=== PATIENT | male | born 1935 | race Caucasian/White ===

== ENCOUNTER 2017-10-08 02:13 | Emergency (ER) | payer OTHER ==
[2017-10-08] MEDS ORDERED: ONDANSETRON 4 MG/2 ML VIAL IVP ONE (02:34)
[2017-10-08] MEDS ORDERED: NS 1,000 ML IV ONE (02:34)
[2017-10-08] MEDS ORDERED: HYDROmorphONE/DILAUDID 2 MG/ML INJ IVP ONE (02:34)
[2017-10-08 02:40] LABS: PLATELET COUNT 253 10^3/uL (150-400)
[2017-10-08] MEDS ORDERED: IOPAMIDOL (ISOVUE-300) 100 ML BTL ONE (02:40)
--- NOTE | 2017-10-08 02:44 | EDPHY ---
H & P Stated Complaint: abd pain Time Seen by Provider: 10/08/17 02:33 HPI/ROS: HPI The patient presents with abdominal pain which has been present since about 9: 00 p.m. Tonight after eating a piece of cake. The pain is sharp, epigastric, intermittent, associated with belching and nausea. There is no radiation of the pain. He has had 2 small bowel movements yesterday. He was recently admitted to a hospital in [place] on July 08 for an SBO which resolved with conservative measures. He has not had any abdominal operations. At home he tried taking Pepto-Bismol and tramadol without any improvement in the pain so he came in to the emergency department.. REVIEW OF SYSTEMS Constitutional: No fever, no chills. Eyes: No discharge. ENT: No sore throat. Cardiovascular: No chest pain, no palpitations. Respiratory: No cough, no shortness of breath. Gastrointestinal: No abdominal pain, no vomiting. Genitourinary: No hematuria. Musculoskeletal: No back pain. Skin: No rashes. Neurological: No headache. PMHx: History of SBO as above, West Nile virus with encephalopathy, myasthenia gravis Soc Hx: Visiting his 2 sons in [place], lives in [place] usually PHYSICAL General Appearance: Alert, uncomfortable appearing Eyes: Pupils equal and round no pallor or injection ENT, Mouth: Mucous membranes moist Respiratory: There are no retractions, lungs are clear to auscultation Cardiovascular: Regular rate and rhythm Gastrointestinal: Abdomen is soft and tender in the epigastrium with mild diffuse tenderness throughout all quadrants, there is voluntary guarding Neurological: A&O, moves all extremities Skin: Warm and dry, no rashes Musculoskeletal: Neck is supple non tender Extremities: symmetrical, full range of motion Psychiatric: Patient is oriented X 3, there is no agitation Source: Patient Exam Limitations: No limitations - Personal History Current Tetanus Diphtheria and Acellular Pertussis (TDAP): Yes - Medical/Surgical History Hx Asthma: No Hx Chronic Respiratory Disease: No Hx Diabetes: No Hx Cardiac Disease: No Hx Renal Disease: No Hx Cirrhosis: No Hx Alcoholism: No Hx HIV/AIDS: No Hx Splenectomy or Spleen Trauma: No Other PMH: SBO 07/06. myasthenia gravis. encephalopathy of 5-8. TIA july 2016 - Social History Smoking Status: Never smoked Constitutional: Initial Vital Signs Temperature (C) 36.9 C 10/08/17 02:15 Heart Rate 79 10/08/17 02:15 Respiratory Rate 20 10/08/17 02:15 Blood Pressure 171/83 H 10/08/17 02:15 O2 Sat (%) 96 10/08/17 02:15 O2 Delivery Mode Room Air O2 (L/minute) 2 Allergies/Adverse Reactions: Penicillins Allergy (Verified 10/08/17 02:15) Home Medications: Medication Instructions Recorded Acetaminophen/Caffeine 10/08/17 Cellcept 10/08/17 Clonazepam 10/08/17 Multivitamin (*) 10/08/17 Prednisone 10/08/17 Quinine Sulfate 10/08/17 Vitamin D3 10/08/17 traMADol 10/08/17 Medical Decision Making - Diagnostics Imaging Results: CT abdomen pelvis shows bowel obstruction with distension of the abdomen and small bowel with fecal matter in the colon, discussed with Dr. Yu of Radiology. Differential Diagnosis: 82-year-old man, history of myasthenia gravis, West Nile virus encephalopathy, recent SBO with unclear cause, presents with epigastric abdominal pain which began at 9:00 p.m. Tonight. On exam, he is uncomfortable appearing, blood pressure is elevated, he is quite tender in the epigastrium. Differential diagnosis includes perforated gastric ulcer, gastritis, GERD, pancreatitis, cholecystitis. In the emergency department, the patient received 1 L normal saline and a dose of Dilaudid with complete resolution in his pain. Labs were checked and were relatively unremarkable. Patient underwent CT scan of his abdomen which did show bowel obstruction, however without any transition point and was stool in his colon. I discussed the case with Dr. Trejo. He recommends that we perform enema here and reassessed the patient. The patient attempted enema without much success. He felt well for several hours and was monitored here during that time. His abdominal exam remained benign. He had no vomiting. He has requested to go home at this point. I feel this is reasonable. I will send him home with magnesium citrate in the hopes that this will produce a bowel movement. He is able to tolerate fluids and will be discharged with his . I did explain to them that his TSH was slightly elevated, however they have done a full thyroid panel within the last few months which was unremarkable. I explained that they may want to follow this up with a return home. - Data Points Laboratory Results: Laboratory Results 10/08/17 02:31 10/08/17 02:31 10/08/17 10/08/17 10/08/17 03:25 02:31 02:31 WBC RBC Hgb Hct MCV MCH MCHC RDW Plt Count MPV Neut % (Auto) Lymph % (Auto) [place] % (Auto) Eos % (Auto) Baso % (Auto) Nucleat RBC Rel Count Absolute Neuts (auto) Absolute Lymphs (auto) Absolute Monos (auto) Absolute Eos (auto) Absolute Basos (auto) Absolute Nucleated RBC Immature Gran % Immature Gran # VBG Lactic Acid Sodium 143 mEq/L mEq/L (135-145) Potassium 3.9 mEq/L mEq/L (3.3-5.0) Chloride 102 mEq/L mEq/L (97-110) Carbon Dioxide 29 mEq/l mEq/l (22-31) Anion Gap 12 mEq/L mEq/L (8-16) BUN 29 mg/dL H mg/dL (7-23) Creatinine 0.9 mg/dL mg/dL (0.7-1.3) Estimated GFR > 60 Glucose 102 mg/dL H mg/dL (70-100) Calcium 10.2 mg/dL mg/dL (8.5-10.4) Total Bilirubin 0.6 mg/dL mg/dL (0.1-1.4) Conjugated Bilirubin 0.4 mg/dL mg/dL (0.0-0.5) Unconjugated Bilirubin 0.2 mg/dL mg/dL (0.0-1.1) AST 25 IU/L IU/L (17-59) ALT 29 IU/L IU/L (21-72) Alkaline Phosphatase 72 IU/L IU/L (38-126) Total Protein 6.8 g/dL g/dL (6.3-8.2) Albumin 4.1 g/dL g/dL (3.5-5.0) Lipase 188 IU/L IU/L (23-300) TSH 6.580 uIU/mL H uIU/mL (0.465-4.680) Urine Color YELLOW Urine Appearance MODERATELY TURBID Urine pH 8.0 H (5.0-7.5) Ur Specific [place] > 1.035 H (1.002-1.030) Urine Protein NEGATIVE (NEGATIVE) Urine Ketones NEGATIVE (NEGATIVE) Urine Blood NEGATIVE (NEGATIVE) Urine Nitrate NEGATIVE (NEGATIVE) Urine Bilirubin NEGATIVE (NEGATIVE) Urine Urobilinogen NEGATIVE EU EU (0.2-1.0) Ur Leukocyte Esterase NEGATIVE (NEGATIVE) Urine Glucose NEGATIVE (NEGATIVE) 10/08/17 10/08/17 02:31 02:31 WBC 10.26 10^3/uL H 10^3/uL (3.80-9.50) RBC 4.26 10^6/uL L 10^6/uL (4.40-6.38) Hgb 13.0 g/dL L g/dL (13.7-17.5) Hct 41.7 % % (40.0-51.0) MCV 97.9 fL fL (81.5-99.8) MCH 30.5 pg pg (27.9-34.1) MCHC 31.2 g/dL L g/dL (32.4-36.7) RDW 13.8 % % (11.5-15.2) Plt Count 253 10^3/uL 10^3/uL (150-400) MPV 9.0 fL fL (8.7-11.7) Neut % (Auto) 76.6 % H % (39.3-74.2) Lymph % (Auto) 11.9 % L % (15.0-45.0) [place] % (Auto) 9.5 % % (4.5-13.0) Eos % (Auto) 0.9 % % (0.6-7.6) Baso % (Auto) 0.4 % % (0.3-1.7) Nucleat RBC Rel Count 0.0 % % (0.0-0.2) Absolute Neuts (auto) 7.87 10^3/uL H 10^3/uL (1.70-6.50) Absolute Lymphs (auto) 1.22 10^3/uL 10^3/uL (1.00-3.00) Absolute Monos (auto) 0.97 10^3/uL H 10^3/uL (0.30-0.80) Absolute Eos (auto) 0.09 10^3/uL 10^3/uL (0.03-0.40) Absolute Basos (auto) 0.04 10^3/uL 10^3/uL (0.02-0.10) Absolute Nucleated RBC 0.00 10^3/uL 10^3/uL (0-0.01) Immature Gran % 0.7 % % (0.0-1.1) Immature Gran # 0.07 10^3/uL 10^3/uL (0.00-0.10) VBG Lactic Acid 1.6 mmol/L mmol/L (0.7-2.1) Sodium Potassium Chloride Carbon Dioxide Anion Gap BUN Creatinine Estimated GFR Glucose Calcium Total Bilirubin Conjugated Bilirubin Unconjugated Bilirubin AST ALT Alkaline Phosphatase Total Protein Albumin Lipase TSH Urine Color Urine Appearance Urine pH Ur Specific [place] Urine Protein Urine Ketones Urine Blood Urine Nitrate Urine Bilirubin Urine Urobilinogen Ur Leukocyte Esterase Urine Glucose Medications Given: Discontinued Medications Hydromorphone HCl (Dilaudid) 0.5 mg IVP EDNOW ONE Stop: 10/08/17 02:35 Last Admin: 10/08/17 02:40 Dose: 0.5 mg Sodium Chloride (Ns) 1,000 mls @ 0 mls/hr IV EDNOW ONE; Wide Open PRN Reason: Protocol Stop: 10/08/17 02:35 Last Admin: 10/08/17 02:39 Dose: 1,000 mls Magnesium Citrate (Magnesium Citrate) 300 ml PO ONCE ONE Stop: 10/08/17 06:29 Last Admin: 10/08/17 06:25 Dose: 1 btl Ondansetron HCl (Zofran) 4 mg IVP EDNOW ONE Stop: 10/08/17 02:35 Last Admin: 10/08/17 02:39 Dose: 4 mg Departure - Departure Disposition: Home, Routine, Self-Care Clinical Impression: TSH elevation Bowel obstruction Qualifiers: Intestinal obstruction type: unspecified Intestinal obstruction extent: unspecified extent Qualified Code(s): K56.609 - Unspecified intestinal obstruction, unspecified as to partial versus complete obstruction Condition: Good Instructions: Constipation (DC) Additional Instructions: Please take the magnesium citrate at home. If your feeling better, there is no need to return to the emergency department. If you have difficulty having a bowel movement or developed abdominal pain or vomiting you should return to the emergency department. Your labs showed that your TSH was elevated and this could be causing your bowels to move more slowly. You will need follow-up testing when you return home with your doctor for a recheck. Referrals: LINDA DESAI [Other] - As per Instructions
[2017-10-08 03:21] VITALS: BP 143/72
[2017-10-08] MEDS ORDERED: MAGNESIUM CITRATE 300 ML BOTTLE ONE (06:23)
[2017-10-08] MEDS ORDERED: MAGNESIUM CITRATE 300 ML BOTTLE PO ONE (06:28)
== END 2017-10-08 06:32 | disposition home or self-care (01) ==
DX: K56.609 Unspecified intestinal obstruction, unspecified as to partial versus complete obstruction (principal); R94.6 Abnormal results of thyroid function studies; E86.9 Volume depletion, unspecified
CPT/HCPCS: 74177; 96361; 96374; 96375; 99285; J1170; J2405; Q9967

== ENCOUNTER 2017-10-08 11:02 | Observation (INO) | payer OTHER ==
--- NOTE | 2017-10-08 11:41 | EDPHY ---
HPI/HX/ROS/PE/MDM Narrative: CHIEF COMPLAINT: Abdominal pain, diagnosed with bowel obstruction HISTORY OF PRESENT ILLNESS: The patient is an 82 y/o male with a history of an appendectomy complaining of sharp, intermittent, upper abdominal pain associated with belching and nausea, onset at 21:00, 15 hours ago. On 07/08/17, he was admitted to a hospital in [place] for a SBO which resolved with conservative measures including a small bowel follow through. Two days ago he had 2 small bowel movements prior to the onset of pain. Early this morning he presented to this emergency department and was diagnosed with a bowel obstruction without any transition point and stool in the colon. Dr. Trejo, general surgeon, was consulted and he advised that the patient receive and enema. However, there was not much success with the enema. The patient eventually requested to return home after receiving fluids and Dilaudid. After returning home he tried to take magnesium citrate which caused his pain to worsen. No fever, chills, chest pain, shortness of breath, palpitations, vomiting, diarrhea, urinary complaints, headache, lightheadedness. REVIEW OF SYSTEMS: Aside from elements discussed in the HPI, a comprehensive 10-point review of systems was reviewed and is negative. PAST MEDICAL HISTORY: SBO, appendectomy, West Nile virus with encephalopathy, myasthenia gravis SOCIAL HISTORY: at bedside, visiting his 2 sons in [place], lives in [place], retired VITAL SIGNS: Reviewed by me GENERAL: Pale, elderly, resting comfortably in no respiratory distress. HEENT: Atraumatic. Eyes: No icterus, no injection. Mouth: dry mucous membranes. No erythema or lesions. Neck: supple with no adenopathy. LUNGS: Clear to auscultation bilaterally, no wheezes, rhonchi or rales. CARDIAC: Regular rate and rhythm, no rubs, murmurs or gallops. ABDOMEN: Moderate diffuse abdominal tenderness (more in the upper quadrants). Soft, nondistended, bowel sounds hyperactive. BACK: No CVA tenderness. EXTREMITIES: No trauma. No edema. Range of motion is normal throughout. NEURO: Alert and oriented, grossly nonfocal. SKIN: Warm and dry, no rash. PSYCHIATRIC: Normal mentation, no agitation. Portions of this note were transcribed by a director biomedical engineering. I personally performed a history, physical exam, medical decision making, and confirmed accuracy of information the transcribed note. ED Course: The patient is an 82 y/o male with a history of an appendectomy presenting with sharp, intermittent, upper abdominal pain associated with belching and nausea, onset at 21:00, 15 hours ago. He was seen in this emergency department last night and diagnosed with a obstuction secondary to constipation. The patient tried an enema and magnesium citrate without relief of his symptoms. On exam he has moderate diffuse abdominal tenderness (more in the upper quadrants) and hyperactive bowel sounds. Labs and abdominal x-ray ordered; 1L IV NS and 75mcg IV Fentanyl administered. I discussed the plan for admission as the patient has been unable to care for himself. The patient's is comfortable with plan of admission for further care. 1249: I reviewed patient's abdominal x-ray which reveals few scattered air fluid levels and some constipation. 1305: Consulted with Dr. Trejo, trauma surgeon, regarding this patient. Dr. Trejo believes the patient should have another enema and be given Synthroid; perhaps patient will be able to have a decent bowel movement and be discharged to home.. 100mcg PO Synthroid and 300 mL PO Magnesium Citrate administered. 1350: Reassessed patient and discussed imaging and laboratory findings. Patient is comfortable with having an enema. 1438: Patient is still in pain; additional 50mcg IV Fentanyl administered. Discussed with hospital medicine staff. Will admit for ongoing pain control, prevention of dehydration, and aggressive bowel regiment. MDM: Diff dx considered included constipation, obstipation, fecal impaction, bowel obstruction, ileus, hypokalemia, hypothyroidism. - Data Points Imaging Results: Imaging Impressions Abdomen X-Ray 10/08/17 12:12 Impression: 1. Persistent mild dilatation of small bowel loops lower abdomen to upper pelvis compatible with relatively stable partial SBO. Imaging: I viewed and interpreted images myself Laboratory Results: Laboratory Results 10/08/17 12:10 10/08/17 12:10 10/08/17 10/08/17 10/08/17 14:14 12:10 12:10 WBC 11.35 10^3/uL H 10^3/uL (3.80-9.50) RBC 3.71 10^6/uL L 10^6/uL (4.40-6.38) Hgb 11.3 g/dL L g/dL (13.7-17.5) Hct 35.6 % L % (40.0-51.0) MCV 96.0 fL fL (81.5-99.8) MCH 30.5 pg pg (27.9-34.1) MCHC 31.7 g/dL L g/dL (32.4-36.7) RDW 13.9 % % (11.5-15.2) Plt Count 232 10^3/uL 10^3/uL (150-400) MPV 9.2 fL fL (8.7-11.7) Neut % (Auto) 85.6 % H % (39.3-74.2) Lymph % (Auto) 4.1 % L % (15.0-45.0) [place] % (Auto) 9.2 % % (4.5-13.0) Eos % (Auto) 0.2 % L % (0.6-7.6) Baso % (Auto) 0.3 % % (0.3-1.7) Nucleat RBC Rel Count 0.0 % % (0.0-0.2) Absolute Neuts (auto) 9.73 10^3/uL H 10^3/uL (1.70-6.50) Absolute Lymphs (auto) 0.46 10^3/uL L 10^3/uL (1.00-3.00) Absolute Monos (auto) 1.04 10^3/uL H 10^3/uL (0.30-0.80) Absolute Eos (auto) 0.02 10^3/uL L 10^3/uL (0.03-0.40) Absolute Basos (auto) 0.03 10^3/uL 10^3/uL (0.02-0.10) Absolute Nucleated RBC 0.00 10^3/uL 10^3/uL (0-0.01) Immature Gran % 0.6 % % (0.0-1.1) Immature Gran # 0.07 10^3/uL 10^3/uL (0.00-0.10) Platelet Estimate TNP Sodium 139 mEq/L mEq/L (135-145) Potassium 4.0 mEq/L mEq/L (3.3-5.0) Chloride 101 mEq/L mEq/L (97-110) Carbon Dioxide 29 mEq/l mEq/l (22-31) Anion Gap 9 mEq/L mEq/L (8-16) BUN 23 mg/dL mg/dL (7-23) Creatinine 0.7 mg/dL mg/dL (0.7-1.3) Estimated GFR > 60 Glucose 85 mg/dL mg/dL (70-100) Calcium 9.4 mg/dL mg/dL (8.5-10.4) Total Bilirubin 0.7 mg/dL mg/dL (0.1-1.4) Conjugated Bilirubin 0.3 mg/dL mg/dL (0.0-0.5) Unconjugated Bilirubin 0.4 mg/dL mg/dL (0.0-1.1) AST 22 IU/L IU/L (17-59) ALT 27 IU/L IU/L (21-72) Alkaline Phosphatase 65 IU/L IU/L (38-126) Total Protein 5.8 g/dL L g/dL (6.3-8.2) Albumin 3.4 g/dL L g/dL (3.5-5.0) Urine Color YELLOW Urine Appearance MODERATELY TURBID Urine pH 8.0 H (5.0-7.5) Ur Specific [place] 1.023 (1.002-1.030) Urine Protein NEGATIVE (NEGATIVE) Urine Ketones NEGATIVE (NEGATIVE) Urine Blood NEGATIVE (NEGATIVE) Urine Nitrate NEGATIVE (NEGATIVE) Urine Bilirubin NEGATIVE (NEGATIVE) Urine Urobilinogen NEGATIVE EU EU (0.2-1.0) Ur Leukocyte Esterase NEGATIVE (NEGATIVE) Urine RBC 1-3 /hpf /hpf (0-3) Urine WBC 1-3 /hpf /hpf (0-3) Ur Epithelial Cells NONE SEEN /lpf /lpf (NONE-1+) Amorphous Sediment PRESENT /hpf /hpf (NONE-1+) Urine Glucose NEGATIVE (NEGATIVE) Medications Given: Levothyroxine Sodium (Synthroid) 100 mcg PO DAILY AT 6AM [facility] Stop: 04/06/18 13:29 Last Admin: 10/08/17 14:50 Dose: 100 mcg Discontinued Medications Fentanyl (Sublimaze) 75 mcg IVP EDNOW ONE Stop: 10/08/17 12:11 Last Admin: 10/08/17 12:49 Dose: 75 mcg Fentanyl (Sublimaze) 50 mcg IVP EDNOW ONE Stop: 10/08/17 14:38 Last Admin: 10/08/17 14:48 Dose: 50 mcg Sodium Chloride (Ns) 1,000 mls @ 0 mls/hr IV EDNOW ONE; Wide Open PRN Reason: Protocol Stop: 10/08/17 12:11 Last Admin: 10/08/17 12:49 Dose: 1,000 mls Magnesium Citrate (Magnesium Citrate) 300 ml PO ONCE ONE Stop: 10/08/17 14:09 Last Admin: 10/08/17 14:14 Dose: 300 ml General Time Seen by Provider: 10/08/17 11:38 Initial Vital Signs: Initial Vital Signs Temperature (C) 36.5 C 10/08/17 11:06 Heart Rate 73 10/08/17 11:06 Respiratory Rate 18 10/08/17 11:06 Blood Pressure 157/75 H 10/08/17 11:06 O2 Sat (%) 98 10/08/17 11:06 O2 Delivery Mode Room Air Allergies/Adverse Reactions: Penicillins Allergy (Verified 10/08/17 13:49) Hives Home Medications: Medication Instructions Recorded RX: Acetaminophen/Caffeine 1 each PO Q4HRS PRN 10/08/17 [Tension Headache Caplet] RX: Cholecalciferol Vit D3 1,000 units PO DAILY 10/08/17 [Vitamin D3 (*)] RX: Multivitamins [Multivitamin 1 each PO DAILY 10/08/17 (*)] RX: Mycophenolate Mofetil 500 mg PO BID 10/08/17 [Cellcept] RX: clonazePAM [Klonopin (*)] 0.25 - 0.5 mg PO HS PRN 10/08/17 RX: predniSONE 10 mg PO Q2D 10/08/17 RX: quiNIDine SULFATE [Quinidine 300 mg PO DAILY PRN 10/08/17 Sulfate] RX: traMADol [Ultram 50 mg (*)] 50 mg PO Q4HRS PRN 10/08/17 RX: Acetaminophen [Tylenol 325mg 650 mg PO Q4HRS PRN tab 10/09/17 (*)] Departure - Departure Disposition: [facility] Inpatient Acute Clinical Impression: Bowel obstruction Qualifiers: Intestinal obstruction type: unspecified Intestinal obstruction extent: partial Qualified Code(s): K56.600 - Partial intestinal obstruction, unspecified as to cause Constipation Qualifiers: Constipation type: unspecified constipation type Qualified Code(s): K59.00 - Constipation, unspecified Abdominal pain Qualifiers: Abdominal location: upper abdomen, unspecified Qualified Code(s): R10.10 - Upper abdominal pain, unspecified Condition: Good Report Scribed for: Cassidy Flores Report Scribed by: Anne Clark Date of Report: 10/08/17 Time of Report: 11:41
[2017-10-08] MEDS ORDERED: NS 1,000 ML IV ONE (12:10)
[2017-10-08] MEDS ORDERED: fentaNYL 100 MCG/2 ML INJ IVP ONE ×2 (12:10→14:37)
[2017-10-08 12:29] LABS: PLATELET COUNT 232 10^3/uL (150-400)
[2017-10-08] MEDS ORDERED: LEVOTHYROXINE 100 MCG TAB PO SCH (13:30)
[2017-10-08] MEDS ORDERED: MAGNESIUM CITRATE 300 ML BOTTLE ONE (14:01)
[2017-10-08] MEDS ORDERED: MAGNESIUM CITRATE 300 ML BOTTLE PO ONE (14:08)
[2017-10-08] MEDS ORDERED: clonazePAM 0.5 MG TAB PO PRN (15:38)
[2017-10-08] MEDS ORDERED: ACETAMINOPHEN PO PRN (15:38)
[2017-10-08] MEDS ORDERED: CAFFEINE PO PRN (15:38)
[2017-10-08] MEDS ORDERED: traMADol 50 MG TAB PO PRN (15:38)
[2017-10-08] MEDS ORDERED: predniSONE 10 MG TAB PO SCH (16:00)
[2017-10-08] MEDS ORDERED: LORazepam 2 MG/ML INJ IVP ONE ×2 (16:12→16:26)
[2017-10-08] MEDS ORDERED: LORazepam 2 MG/ML INJ ONE ×2 (16:18→16:29)
[2017-10-08] MEDS ORDERED: ACETAMINOPHEN 325 MG TAB PO PRN (16:26)
[2017-10-08] MEDS ORDERED: ONDANSETRON DISINTEGRATING 4 MG TAB PO PRN (16:26)
[2017-10-08] MEDS ORDERED: oxyCODONE IR 5 MG TAB PO PRN (16:26)
[2017-10-08] MEDS ORDERED: ONDANSETRON 4 MG/2 ML VIAL IVP PRN (16:26)
[2017-10-08] MEDS ORDERED: LEVOTHYROXINE 75 MCG TAB PO SCH (16:29)
--- NOTE | 2017-10-08 16:34 | PDGENHP ---
History and Physical - Chief Complaint abd pain - History of Present Illness The patient is an 82 y/o male with a history of an appendectomy complaining of sharp, intermittent, upper abdominal pain associated with belching and nausea, onset at 21:00 yesterday. On 07/08/17, he was admitted to a hospital in [place] for a SBO which resolved with conservative measures including a small bowel follow through. Two days ago he had 2 small bowel movements prior to the onset of pain. Early this morning he presented to this emergency department and was diagnosed with a bowel obstruction without any transition point and stool in the colon. Dr. Trejo, general surgeon, was consulted and he advised that the patient receive and enema. However, there was not much success with the enema. The patient eventually requested to return home after receiving fluids and Dilaudid. After returning home he tried to take magnesium citrate which caused his pain to worsen. Therefore, he presented back to the E.D. and at this time he is being admitted for further management. The patient has tried an enema and magnesium citrate without relief of his symptoms. In the ER, he was found to have an elevated TSH and started on Levothyroxine. No fever, chills, chest pain, shortness of breath, palpitations, vomiting, diarrhea, urinary complaints, headache, lightheadedness. CT imaging this morning shows SBO and fecal material in the colon. KUB this afternoon shows SBO (reviewed and interpreted myself). relatively stable partial SBO. PAST MEDICAL/SURGICAL HISTORY: SBO, appendectomy, West Nile virus with encephalopathy, myasthenia gravis SOCIAL HISTORY: at bedside, visiting his 2 sons in [place], lives in [place], retired FM[employer]x: non contributory History Information - Allergies/Home Medication List Allergies/Adverse Reactions: Penicillins Allergy (Verified 10/08/17 13:49) Hives Home Medications: Acetaminophen/Caffeine [Tension Headache Caplet] 1 each PO Q4HRS PRN 10/08/17 [ Last Taken Unknown] Cholecalciferol Vit D3 [Vitamin D3 (*)] 1,000 units PO DAILY 10/08/17 [Last Taken 10/07/17] Multivitamins [Multivitamin (*)] 1 each PO DAILY 10/08/17 [Last Taken 10/07/17] Mycophenolate Mofetil [Cellcept] 500 mg PO BID 10/08/17 [Last Taken 10/07/17 21: 00] clonazePAM [Klonopin (*)] 0.25 - 0.5 mg PO HS PRN 10/08/17 [Last Taken 10/06/17] predniSONE 10 mg PO Q2D 10/08/17 [Last Taken 10/06/17] quiNIDine SULFATE [Quinidine Sulfate] 300 mg PO DAILY 10/08/17 [Last Taken 10/07] traMADol [Ultram 50 mg (*)] 50 mg PO Q4HRS PRN 10/08/17 [Last Taken 10/07/17 21: 00] I have personally reviewed and updated: medical history, social history - Social History Smoking Status: Never smoked Review of Systems Review of Systems: ROS: 10pt was reviewed & negative except for what was stated in HPI & below Physical Exam Physical Exam: Temp Pulse Resp BP Pulse Ox 37.1 C 90 16 157/124 H 96 10/08/17 13:41 10/08/17 16:00 10/08/17 16:00 10/08/17 16:00 10/08/17 16:00 Constitutional: uncomfortable Eyes: PERRL, EOMI Ears, Nose, Mouth, Throat: dry mucous membranes Cardiovascular: regular rate and rhythym, No edema Respiratory: no respiratory distress, no rales or rhonchi, clear to auscultation Gastrointestinal: No tenderness, No rebound, No distension Skin: warm Musculoskeletal: generalized weakness Neurologic: AAOx3 Psychiatric: interacting appropriately, not encephalopathic, anxious Lymph, Heme, Immunologic: No petechiae Lab Data & Imaging Review 10/08/17 12:10 10/08/17 12:10 WBC 11.35 10^3/uL (3.80-9.50) H 10/08/17 12:10 RBC 3.71 10^6/uL (4.40-6.38) L 10/08/17 12:10 Hgb 11.3 g/dL (13.7-17.5) L 10/08/17 12:10 Hct 35.6 % (40.0-51.0) L 10/08/17 12:10 MCV 96.0 fL (81.5-99.8) 10/08/17 12:10 MCH 30.5 pg (27.9-34.1) 10/08/17 12:10 MCHC 31.7 g/dL (32.4-36.7) L 10/08/17 12:10 RDW 13.9 % (11.5-15.2) 10/08/17 12:10 Plt Count 232 10^3/uL (150-400) 10/08/17 12:10 MPV 9.2 fL (8.7-11.7) 10/08/17 12:10 Neut % (Auto) 85.6 % (39.3-74.2) H 10/08/17 12:10 Lymph % (Auto) 4.1 % (15.0-45.0) L 10/08/17 12:10 Hall % (Auto) 9.2 % (4.5-13.0) 10/08/17 12:10 Eos % (Auto) 0.2 % (0.6-7.6) L 10/08/17 12:10 Baso % (Auto) 0.3 % (0.3-1.7) 10/08/17 12:10 Nucleat RBC Rel Count 0.0 % (0.0-0.2) 10/08/17 12:10 Absolute Neuts (auto) 9.73 10^3/uL (1.70-6.50) H 10/08/17 12:10 Absolute Lymphs (auto) 0.46 10^3/uL (1.00-3.00) L 10/08/17 12:10 Absolute Monos (auto) 1.04 10^3/uL (0.30-0.80) H 10/08/17 12:10 Absolute Eos (auto) 0.02 10^3/uL (0.03-0.40) L 10/08/17 12:10 Absolute Basos (auto) 0.03 10^3/uL (0.02-0.10) 10/08/17 12:10 Absolute Nucleated RBC 0.00 10^3/uL (0-0.01) 10/08/17 12:10 Immature Gran % 0.6 % (0.0-1.1) 10/08/17 12:10 Immature Gran # 0.07 10^3/uL (0.00-0.10) 10/08/17 12:10 Platelet Estimate TNP 10/08/17 12:10 Sodium 139 mEq/L (135-145) 10/08/17 12:10 Potassium 4.0 mEq/L (3.3-5.0) 10/08/17 12:10 Chloride 101 mEq/L (97-110) 10/08/17 12:10 Carbon Dioxide 29 mEq/l (22-31) 10/08/17 12:10 Anion Gap 9 mEq/L (8-16) 10/08/17 12:10 BUN 23 mg/dL (7-23) 10/08/17 12:10 Creatinine 0.7 mg/dL (0.7-1.3) 10/08/17 12:10 Estimated GFR > 60 10/08/17 12:10 Glucose 85 mg/dL (70-100) 10/08/17 12:10 Calcium 9.4 mg/dL (8.5-10.4) 10/08/17 12:10 Total Bilirubin 0.7 mg/dL (0.1-1.4) 10/08/17 12:10 Conjugated Bilirubin 0.3 mg/dL (0.0-0.5) 10/08/17 12:10 Unconjugated Bilirubin 0.4 mg/dL (0.0-1.1) 10/08/17 12:10 AST 22 IU/L (17-59) 10/08/17 12:10 ALT 27 IU/L (21-72) 10/08/17 12:10 Alkaline Phosphatase 65 IU/L (38-126) 10/08/17 12:10 Total Protein 5.8 g/dL (6.3-8.2) L 10/08/17 12:10 Albumin 3.4 g/dL (3.5-5.0) L 10/08/17 12:10 Urine Color YELLOW 10/08/17 14:14 Urine Appearance MODERATELY TURBID 10/08/17 14:14 Urine pH 8.0 (5.0-7.5) H 10/08/17 14:14 Ur Specific [place] 1.023 (1.002-1.030) 10/08/17 14:14 Urine Protein NEGATIVE (NEGATIVE) 10/08/17 14:14 Urine Ketones NEGATIVE (NEGATIVE) 10/08/17 14:14 Urine Blood NEGATIVE (NEGATIVE) 10/08/17 14:14 Urine Nitrate NEGATIVE (NEGATIVE) 10/08/17 14:14 Urine Bilirubin NEGATIVE (NEGATIVE) 10/08/17 14:14 Urine Urobilinogen NEGATIVE EU (0.2-1.0) 10/08/17 14:14 Ur Leukocyte Esterase NEGATIVE (NEGATIVE) 10/08/17 14:14 Urine RBC 1-3 /hpf (0-3) 10/08/17 14:14 Urine WBC 1-3 /hpf (0-3) 10/08/17 14:14 Ur Epithelial Cells NONE SEEN /lpf (NONE-1+) 10/08/17 14:14 Amorphous Sediment PRESENT /hpf (NONE-1+) 10/08/17 14:14 Urine Glucose NEGATIVE (NEGATIVE) 10/08/17 14:14 Assessment & Plan Assessment: Partial Small Bowel obstruction Abd Pain Nausea ?Gastritis Hypothyroidism HTN, not on home meds, maybe due to pain or discomfort Leukocytosis Anemia Hx of Myasthenia Gravis Chronic Steroid Use Plan: conservative mgmt If worsens, then Dr. Trejo can reconsult Trial of PPI NPO, IVF Pain mgmt Synthroid, which was started in the ER Hold off on NGT for now KUB in a.m. home meds as appropriate SCD's
[2017-10-08] MEDS: NS 1,000 ML IV SCH (18:28)
[2017-10-08] MEDS: LORazepam 2 MG/ML INJ IVP PRN ×2 (20:14→23:50)
[2017-10-08] MEDS: MYCOPHENOLATE MOFETIL 250 MG CAP PO SCH (20:14)
[2017-10-08] MEDS: PANTOPRAZOLE SODIUM 40 MG VIAL IVP SCH (20:14)
[2017-10-09] MEDS: LORazepam 2 MG/ML INJ IVP PRN (04:07)
[2017-10-09] MEDS: NS 1,000 ML IV SCH (05:52)
[2017-10-09 08:00] LABS: PLATELET COUNT 206 10^3/uL (150-400)
[2017-10-09] MEDS ORDERED: CHOLECALCIFEROL VIT D3 1,000 UNITS TAB PO SCH (09:00)
[2017-10-09] MEDS ORDERED: QUINIDINE SULFATE 300 MG PO SCH (09:00)
--- NOTE | 2017-10-09 09:26 | ASMTCMCOM ---
CM Note CM Note Notes: Chart reviewed for discharge planning purposes, 82 year old male admitted via ED for c/o abdominal pain. He has hx of SBO. Normally lives in [place] with his . treated conservatively in ED and sent home but returned with increasing pain. No current needs identified Plan of care unclear at this time. Plan: Likely home to family independently when medically cleared for discharge home. Date Signed: 10/09/2017 09:26 AM Electronically Signed By:Bettie Skinner RN
[2017-10-09] MEDS: PANTOPRAZOLE SODIUM 40 MG VIAL IVP SCH (09:38)
[2017-10-09] MEDS: MYCOPHENOLATE MOFETIL 250 MG CAP PO SCH (09:40)
[2017-10-09] MEDS: MULTIVITAMINS 1 EACH TAB PO SCH ×2 (09:48→10:22)
[2017-10-09 12:23] VITALS: BP 139/65
--- NOTE | 2017-10-09 14:00 | ASMTLACE ---
LACE Length of stay for Answers: Less than 1 day current admission Acuity / Level of Answers: Yes Care: Did the patient have an inpatient admission? Comorbidities - select Answers: Other Notes: sbo all that apply # of Emergency department Answers: 1-2 visits in the last 6 months Score: 5 Date Signed: 10/09/2017 02:00 PM Electronically Signed By:Bettie Skinner RN
--- NOTE | 2017-10-09 14:03 | ASMTCMCOM ---
CM Note CM Note Notes: Medically cleared for discharge to home with family support. Nn needs. CM available should needs arise. Plan: Home with family support. Date Signed: 10/09/2017 02:02 PM Electronically Signed By:Bettie Skinner RN
--- NOTE | 2017-10-09 14:25 | GDS ---
[f rep st] DISCHARGE SUMMARY DISCHARGE DIAGNOSES: 1. Partial small-bowel obstruction. 2. Abdominal pain. 3. Nausea. 4. Abnormal thyroid stimulating hormone. 5. Hypertension. 6. Leukocytosis. 7. Anemia. 8. History of myasthenia gravis. 9. Chronic steroid use. STUDIES/PROCEDURES: Abdominal x-ray. PHYSICAL EXAMINATION: GENERAL: The patient is alert. VITAL SIGNS: Afebrile at 36.7, pulse 67, res piratory rate is 18, blood pressure is 139/65. He is saturating 95% on room air. I have seen mandy alicia the patient on the day of discharge. HOSPITAL COURSE: The patient is an 82-year-old male visiting from [place], presented to the emergenc y room after developing intense abdominal pain. He was evaluated and diagnosed with: 1. Partial small bowel obstruction. During this hospitalization, he was kept n.p.o. and given bowel rest. His symptoms have completely resolved. X-ray was performed. The patient is tolerating a reg ular diet and has good bowel sounds. He has had multiple bowel movements and will be followed up in the outpatient setting. 2. Abdominal pain, resolved. 3. Nausea, resolved. 4. Hypothyroidism. Patient had an abnormally elevated TSH during hospital evaluation; however, his tells me that 1 month ago he had a full thyroid workup that was within normal limits. He was st arted on levothyroxine during this hospitalization; however, this has been discontinued at the time o f disposition. He received 1 dose total. He will not continue this medication. He will follow his primary care physician for further monitoring and evaluation. 5. Hypertension. The patient had recently not taken his home medications, secondary to his abdomina l pain. His blood pressure is well controlled. 6. Leukocytosis in the setting of acute reaction. This has resolved. 7. Anemia, stable with no intervention warranted. DISPOSITION: The patient will be discharged home with his family independently. PENDING STUDIES: There are no pending studies. DISCHARGE MEDICATIONS: Please refer to EMR form. I have not provided any prescriptions for the bhumi ent at the time of disposition. He will continue all as previously prescribed home medications. DISCHARGE INSTRUCTIONS/FOLLOWUP: Followup will be with his primary care physician in [place]. He myles s been educated to return to the emergency room if his abdominal pain or other symptoms should return , he develops fever, or other complications. He is understanding of this, as well as his . /[id number]/MODL
== END 2017-10-09 15:23 | disposition home or self-care (01) ==
LOC: F3E 16:51
PROVIDERS: ADMIT Family Medicine; ATTEND Family Medicine
DX: K56.600 Partial intestinal obstruction, unspecified as to cause (principal); E86.9 Volume depletion, unspecified; D72.829 Elevated white blood cell count, unspecified; E03.9 Hypothyroidism, unspecified; D64.9 Anemia, unspecified; I10 Essential (primary) hypertension; Z79.52 Long term (current) use of systemic steroids; Z88.0 Allergy status to penicillin
CPT/HCPCS: 74018; 74019; 97162; 97165; G0378; G8978; G8979; G8987; G8988; G8989; J2060; J2405; J3010; J7512